=== PATIENT | male | born 2000 | race Caucasian/White ===

== ENCOUNTER 2022-04-17 14:16 | Emergency (ER) | payer SELFPAY ==
[2022-04-17 14:16] VITALS: BP 162/98; PULSE 115; RESP 15; TEMP 36.8; O2SAT 98
--- NOTE | 2022-04-17 14:25 | ED.FALL ---
HPI - Fall General Chief Complaint: Fall Stated Complaint: fall Time Seen by Provider: 04/17/22 14:24 History of Present Illness HPI Narrative: Pt tripped on sidewalk and fell. Pt scraped hands and right elbow. Pt unsure of last tetanus shot. Pt denies LOC or other injury. Related Data Home Medications Medication Instructions Recorded Confirmed escitalopram oxalate 10 mg tablet 10 mg PO DAILY 04/17/22 04/17/22 Allergies Allergy/AdvReac Type Severity Reaction Status Date / Time No Known Allergies Allergy Verified 04/17/22 14:23 Review of Systems Review of Systems: All systems reviewed & are unremarkable except as noted in HPI and below Exam Const: General: healthy appearing Nutritional Appearance: well nourished Orientation/consciousness: patient oriented x3 Limitations: no limitations HENMT: Head: normal to inspection Neck: Neck: normal visual inspection Chest: Chest palpation & inspection: normal inspection of the chest Resp: Effort & Inspection: normal respiratory effort Skin: Wounds: wounds noted Neuro: General: patient oriented x3, moves all extremities and no focal motor deficits Speech: normal speech Extrem: Other: abrasions to palm of left hand and dorsum of right hand and right elbow. no swelling and full ROM Psych: Mental Status: mental status grossly normal Affect: normal affect Attitude: cooperative Course Vital Signs Vital signs: Vital Signs Temperature 98.3 F 04/17/22 14:16 Pulse Rate 115 H 04/17/22 14:16 Respiratory Rate 15 04/17/22 14:16 Blood Pressure 162/98 H 04/17/22 14:16 Pulse Oximetry 98 04/17/22 14:16 Oxygen Delivery Room Air 04/17/22 14:16 Temperature 98.3 F 04/17/22 14:16 Pulse Rate 115 H 04/17/22 14:16 Respiratory Rate 15 04/17/22 14:16 Blood Pressure 162/98 H 04/17/22 14:16 Pulse Oximetry 98 04/17/22 14:16 Oxygen Delivery Room Air 04/17/22 14:16 MDM - Fall MDM Narrative Medical decision making narrative: abrasions noted, minimal swelling so not likely fx. Pt concerned about cost. agreed to wait on x rays, will see pcp if not improved in 7 days. Will clean wounds and give tetanus shot. Discharge Plan Discharge Clinical Impression: Abrasion hand Patient Disposition: Home, Self-Care Condition: Stable Instructions: Antibiotic Form, Abrasion (ED) Prescriptions: No Action escitalopram oxalate 10 mg tablet 10 mg PO DAILY Follow-up/Referrals: Noam Avendano MD [Primary Care Provider] -
[2022-04-17] MEDS: TETANUS,DIPHTHERIA,AC PERTUSSIS ADULT 0.5 ML (ADACEL) IM (14:37)
== END 2022-04-17 14:45 | disposition home or self-care (01) ==
LOC: CHSED 14:44
PROVIDERS: Emergency Provider Emergency Medicine; PCP Family Medicine
DX: S60.512A Abrasion of left hand, initial encounter (principal); S60.511A Abrasion of right hand, initial encounter; S50.311A Abrasion of right elbow, initial encounter; Z23 Encounter for immunization; W01.0XXA Fall on same level from slipping, tripping and stumbling without subsequent striking against object, initial encounter; Y92.480 Sidewalk as the place of occurrence of the external cause
CPT/HCPCS: 90471; 90715; 99282

== ENCOUNTER 2022-05-20 20:45 | Emergency (ER) | payer OTHER, SELFPAY ==
--- NOTE | ~2022-05-20 | XR_ITS ---
EXAMINATION: XR finger 4th RT min 2V INDICATION: Right fourth finger pain TECHNIQUE: Four views of the right fourth finger are obtained. COMPARISON: None available FINDINGS: There is an acute, traumatic, comminuted, presumably open fracture of the fourth middle pha lanx. Fracture planes extend to the proximal and distal interphalangeal joints. No additional fractur e is identified. There is soft tissue swelling of the fourth finger. IMPRESSION: 1. Comminuted, presumably open fracture of the fourth middle phalanx. Reviewed, dictated and finalized at location L.
--- NOTE | 2022-05-20 20:49 | ED.GENADULT ---
HPI - General Adult General Chief complaint: Wound/Laceration Stated complaint: right hand injury Time Seen by Provider: 05/20/22 20:47 History of Present Illness HPI narrative: Ck is a 22M that presented to the ED with pain and swelling in his right 4th digit after slamming in a lid at work earlier today. No other injuries reported. Tetanus is up to date. Related Data Home Medications Medication Instructions Recorded Confirmed escitalopram oxalate 10 mg tablet 10 mg PO DAILY 04/17/22 05/20/22 Allergies Allergy/AdvReac Type Severity Reaction Status Date / Time No Known Allergies Allergy Verified 04/17/22 14:23 Review of Systems Review of Systems: All systems reviewed & are unremarkable except as noted in HPI and below Exam Const: General: healthy appearing and no acute distress Nutritional Appearance: well nourished Orientation/consciousness: patient oriented x3 HENMT: Head: normal to inspection Ears: external ears normal Face/Nose/Sinus: Normal external nose present Eyes: Conjunctivae: conjunctivae normal Pupils: Equal, round and reactive pupils present Neck: Neck: normal visual inspection Chest: Chest palpation & inspection: normal inspection of the chest Resp: Effort & Inspection: normal respiratory effort Cardio: Rate: regular rate Skin: General skin exam: normal color Rashes: no rashes Neuro: General: patient oriented x3 and moves all extremities Cranial nerves: Yes Nystagmus not present Extrem: General: normal to inspection Other: Right 4th digit had a very superficial laceration over a contusion on the anterior side Psych: Mental Status: mental status grossly normal Course Course Emergency Course: Per my interpretation there was an interarticular fracture at the base of the 5th intermediate phalange He was given NOrco for the pain and placed in a finger splint He was advised to f/u with his doctor for further care. Later radiograph interpretation by radiologist did have concern for an open fracture. However, on exam the wound was very superficial. Vital Signs Vital signs: Vital Signs Temperature 99.3 F 05/20/22 20:50 Pulse Rate 97 05/20/22 20:50 Respiratory Rate 18 05/20/22 20:50 Blood Pressure 145/91 H 05/20/22 20:50 Pulse Oximetry 100 05/20/22 20:50 Oxygen Delivery Room Air 05/20/22 20:50 Temperature 99.3 F 05/20/22 20:50 Pulse Rate 84 05/20/22 21:38 Respiratory Rate 18 05/20/22 21:38 Blood Pressure 131/79 05/20/22 21:38 Pulse Oximetry 98 05/20/22 21:38 Oxygen Delivery Room Air 05/20/22 21:38 Procedures Orthopedic Splinting/Casting Injury #1: Splinting/Casting Date: 05/20/22 Splinting/Casting Time: 21:27 Side: right Upper Extremity Injury Location: finger (right 4th finger) Splint: customized in ED Pre-Formed: metal foam finger splint Pre-Procedure Neuro Vascular Exam: normal Post-Procedure Neuro Vascular Exam: normal Medical Decision Making Vital Signs Vital Signs: Vital Signs Temperature 99.3 F 05/20/22 20:50 Pulse Rate 97 05/20/22 20:50 Respiratory Rate 18 05/20/22 20:50 Blood Pressure 145/91 H 05/20/22 20:50 Pulse Oximetry 100 05/20/22 20:50 Oxygen Delivery Room Air 05/20/22 20:50 Temperature 99.3 F 05/20/22 20:50 Pulse Rate 84 05/20/22 21:38 Respiratory Rate 18 05/20/22 21:38 Blood Pressure 131/79 05/20/22 21:38 Pulse Oximetry 98 05/20/22 21:38 Oxygen Delivery Room Air 05/20/22 21:38 Discharge Plan Discharge Clinical Impression: Fx phalanges, hand-closed Patient Disposition: Home, Self-Care Condition: Stable Instructions: Finger Fracture (ED) Prescriptions: No Action escitalopram oxalate 10 mg tablet 10 mg PO DAILY hydrocodone-acetaminophen 7.5-325 mg tablet 1 tablet PO Q8H PRN (Reason: pain) Qty: 10 0RF Follow-up/Referrals: Noam Avendano MD [Primary Care Provid
[2022-05-20 20:50] VITALS: BP 145/91; PULSE 97; RESP 18; TEMP 37.4; O2SAT 100
[2022-05-20] MEDS: HYDROcodone/acetaminophen (*CRX) 5-325 MG TABLET 1 TAB PO (21:10)
[2022-05-20 21:38] VITALS: BP 131/79; PULSE 84; RESP 18; O2SAT 98
== END 2022-05-20 21:40 | disposition home or self-care (01) ==
PROVIDERS: Emergency Provider Family Medicine; PCP Family Medicine
DX: S61.214A Laceration without foreign body of right ring finger without damage to nail, initial encounter (principal); W45.8XXA Other foreign body or object entering through skin, initial encounter
CPT/HCPCS: 29130; 73140; 99284; A9270

== ENCOUNTER 2022-06-21 11:29 | Outpatient (CLI) | payer OTHER, BC, SELFPAY ==
--- NOTE | ~2022-06-21 | XR_ITS ---
EXAMINATION: XR finger 4th RT min 2V DATE: 06/21/2022 11:55 INDICATION: Swelling of the left fourth digit post blunt trauma one month prior TECHNIQUE: Dorsal palmar, lateral and oblique views of the left fourth digit were obtained COMPARISON: 05/20/2022 FINDINGS: There is decreasing lucency along the longitudinal oriented fracture which extends from the proximal to the distal articular surface of the left fourth middle phalanx. The fracture remains nondisplaced with no significant fracture gap or incongruity at the articular surfaces. No other fractures identif ied. Joint spaces are normal. No erosions/osteolysis to suggest osteomyelitis. Decreased soft tissue swelling centered at the mid phalanx of the fourth digit. IMPRESSION: 1. Likely healing longitudinally oriented fracture of the left fourth middle phalanx with no fracture gap or incongruity were well seated proximal distal articular surfaces. Reviewed, dictated and finalized at location B. IMPRESSION: 1. Likely healing longitudinally oriented fracture of the left fourth middle ph alanx with no fracture gap or incongruity were well seated proximal distal re cular surfaces.
== END 2022-06-21 11:30 | disposition home or self-care (01) ==
LOC: CHSIMG 11:32
PROVIDERS: PCP Family Medicine; Visit Provider Family Medicine
DX: M79.644 Pain in right finger(s) (principal)
CPT/HCPCS: 73140

== ENCOUNTER 2022-07-02 23:15 | Emergency (ER) | payer BC, SELFPAY ==
[2022-07-02 23:17] VITALS: BP 159/100; PULSE 79; RESP 14; TEMP 37; O2SAT 100
[2022-07-03] VITALS (41 sets, daily range): BP systolic 121–148; BP diastolic 63–104; PULSE 51–88; RESP 8–20; TEMP 36.6; O2SAT 96–100
[2022-07-03 00:23] LABS: Basophils Absolute Auto 0.1 K/mm3 (0.0-0.1); Eosinophils Absolute Auto 0.3 K/mm3 (0-0.3); Eosinophils Percent Auto 4.1 % (0-4.4); Hematocrit 46.5 % (42.0-52.0); Hemoglobin 16.1 g/dL (14.0-18.0); Immature Granulocyte Absolute 0.02 K/mm3 (0.00-0.031); Immature Granulocyte Percent A 0.2 % (0-0.5); Lymphocytes Absolute Auto 3.06 K/mm3 (0.9-3.2); Mean Corpuscular HGB Conc 34.6 g/dl (32-36); Mean Corpuscular Hemoglobin 31.3 pg (26-34); Mean Corpuscular Volume 90.5 fl (80-100); Mean Platelet Volume 10.2 fl (7.4-10.4); Monocytes Absolute Auto 0.9 K/mm3 (0.1-0.6); Monocytes Percent Auto 10.6 % (2.6-8.5); Neutrophils Absolute Auto 3.7 K/mm3 (1.3-6.7); Neutrophils Percent Auto 46.1 % (45.5-73.1); Platelet Count Result 296 k/mm3 (150-375); Red Blood Count 5.14 M/mm3 (4.6-6.20); Red Cell Distribution Width 12.4 % (11.5-14.5); White Blood Count 8.1 K/mm3 (4.5-10.0)
[2022-07-03 00:30] LABS: Acetaminophen < 10 ug/mL (10-30); Ethanol < 10 mg/dL (<10); Salicylate < 1.0 mg/dL (2-20)
[2022-07-03 00:31] LABS: Alanine Aminotransferase 14 U/L (6-50); Albumin Level 4.7 g/dL (3.5-5.1); Alkaline Phosphatase 65 U/L (38-126); Anion Gap 8 mmol/L (8-16); Aspartate Amino Transferase 35 U/L (17-59); Bilirubin,Total 0.7 mg/dL (0.2-1.3); Blood Urea Nitrogen 12 mg/dL (9-20); Calcium 9.1 mg/dL (8.4-10.2); Carbon Dioxide 30 mmol/L (22-30); Chloride 100 mmol/L (98-107); Estimated Glomerular Filt Rate > 60; Glucose 70 mg/dL (65-110); Potassium 3.9 mmol/L (3.4-5.0); Sodium 138 mmol/L (137-145)
[2022-07-03 00:55] LABS: Appearance Urine Clear (Clear); Bilirubin Urine Negative (Negative); Blood Urine Negative (Negative); Color Urine Yellow (Yellow); Glucose Urine UA Negative (Negative); Ketones Urine Negative (Negative); Leukocyte Esterase Ur Negative LEU/UL (Negative); Nitrate Urine Negative (Negative); Protein Urine Negative (Negative); Specific Grav Ur 1.016 (1.001-1.035); pH Urine 6.5 (5.0-9.0)
[2022-07-03 00:57] LABS: SARS-CoV-2 RNA PCR Negative (Negative)
[2022-07-03 01:10] LABS: Add Urine Microscopic? NO
--- NOTE | 2022-07-03 01:24 | ED.PSYCH ---
HPI - Psych General Chief Complaint: Psychiatric Symptoms <Marleen Malagon PA-C - Last Filed: 07/03/22 03:39> Stated Complaint: SI <ZHEN Bernal Last Filed: 07/03/22 03:39> Time Seen by Provider: 07/02/22 23:39 <Marleen Malagon PA-C - Last Filed: 07/03/22 03:39> Source: patient <ZHEN Bernal Last Filed: 07/03/22 03:39> Mode of arrival: ambulatory <ZHEN Bernal Last Filed: 07/03/22 03:39> Limitations: no limitations <Marleen Malagon PA-C - Last Filed: 07/03/22 03:39> History of Present Illness HPI Narrative: Patient is a 22-year-old male who presents the ED for psychiatric evaluation. Patient reports he saw his therapist today and was recommended to come to the ED for further psychiatric evaluation and likely psychiatric placement. He states life has been hard lately and he has had increased depression and anxiety over the last 1 year. He has been turning to alcohol for this and has been drinking daily, up to 1/5 of whiskey per day. He last drank today around 2 PM. He reports marijuana use, intermittent use of mushrooms, and use of Krypton, obtained legally from marijuana dispensary. He last used Kratom 1 hour prior to arrival. Patient states he was recently kicked out of his house and has been essentially homeless, though staying with his dad temporarily. He has had thoughts of wanting to harm himself for the last 1 month, and has had a plan for a toaster bath. He also reports he has been hearing voices a few months ago which began again last night. He states he hears 2 voices, one of them a male who threatens him, 1 a female who relaxes him. Patient has been psychiatrically hospitalized once prior. He does currently take Lexapro and bupropion for depression and anxiety. Has not missed any doses. Denies any HI. <ZHEN Bernal Last Filed: 07/03/22 03:39> Related Data Home Medications: Home Medications Medication Instructions Recorded Confirmed escitalopram oxalate 10 mg tablet 10 mg PO DAILY 04/17/22 05/20/22 <Marleen Malagon PA-C - Last Filed: 07/03/22 03:39> Allergies/Adverse Reactions: Allergies Allergy/AdvReac Type Severity Reaction Status Date / Time No Known Allergies Allergy Verified 04/17/22 14:23 <Marleen Malagon PA-C - Last Filed: 07/03/22 03:39> Review of Systems Review of Systems: CONSTITUTIONAL: Denies fever, chills, or sweats. EYES: Denies visual changes. CARDIOVASCULAR: Denies chest pain, palpitations, or edema. RESPIRATORY: Denies cough or dyspnea. GASTROINTESTINAL: Denies abdominal pain, nausea, vomiting. MUSCULOSKELETAL: Denies back pain, joint pain, or myalgia. NEUROLOGIC: Denies headache, numbness, or weakness. PSYCHIATRIC: See HPI. <Marleen Malagon PA-C - Last Filed: 07/03/22 03:39> All systems reviewed & are unremarkable except as noted in HPI and below <Marleen Malagon PA-C - Last Filed: 07/03/22 03:39> PMFSH Past Medical History Medical History: Medical History (Updated 07/04/22 @ 00:00 by Allen Gr) Anxiety Depression <Marleen Malagon PA-C - Last Filed: 07/03/22 03:39> Surgical History Surgical History: Surgical History (Updated 07/03/22 @ 01:31 by Marleen Malagon PA-C) No pertinent past surgical history <Marleen Malagon PA-C - Last Filed: 07/03/22 03:39> Social History Social History: Social History (Updated 07/03/22 @ 01:31 by Marleen Malagon PA-C) Smoking status: Never smoker Alcohol intake: current Substance use: current Substance use type: marijuana, hallucinogens and other <Marleen Malagon PA-C - Last Filed: 07/03/22 03:39> Exam Narrative: GENERAL: Well appearing, well-nourished, non-toxic, in no acute distress. HEAD: Normocephalic, atraumatic. EYES: PERRLA/EOMI, conjunctiva clear. NECK: Supple. No adenopathy, no masses. RESPIRATO
[2022-07-03 01:33] LABS: Amphetamine Screen Urine Negative (Negative); Barbiturate Screen Urine Negative (Negative); Benzodiazepines Screen Urine Negative (Negative); Cannabinoid Screen Urine Positive (Negative); Cocaine Screen Urine Negative (Negative); Methadone Screen Urine Negative (Negative); Opiate Screen Urine Negative (Negative); Phencyclidine Screen Urine Negative (Negative)
[2022-07-03] MEDS: ONDANSETRON INJ 4 MG/2 ML VIAL (02:44)
--- NOTE | 2022-07-03 02:45 | ECG_ITS ---
Measurements Intervals [place] Rate: 56 P: 56 AK: 197 QRS: 72 QRSD: 102 T: 33 QT: 422 QTc: 409 Interpretive Statements SINUS BRADYCARDIA INCOMPLETE RIGHT BUNDLE BRANCH BLOCK BORDERLINE ECG NO PREVIOUS ECG AVAILABLE FOR COMPARISON Electronically Signed On 07-03-2022 6:45:40 CDT by Fab Guidry D.O.
[2022-07-03] MEDS: SODIUM CHLORIDE 0.9% IV 1,000 ML 999 ML IV CONT (02:51)
[2022-07-03] MEDS: PANTOPRAZOLE SODIUM IV 40 MG VIAL IV PUSH (02:52)
--- NOTE | 2022-07-03 03:26 | PC.NURSE ---
Patient began to c/o nausea. He reported that he was hungry and that sometimes when he gets hungry he becomes nauseous. Patient provided sandwich and sprite and was told that if the nausea worsens rather than improves to stop eating and communicate to this RN. The patient began to experience increasing nausea and LUQ abdominal pain. He then vomited several times. He also c/o feeling hot and flushed and was acutely diaphoretic. The patient then admitted that he has been taking Kratom over the past two days and was afraid that he poisoned himself. He states that he took 5 40 mg pills Friday and a total of 9 40 mg pill throughout the day on Friday with the last being approx. 1 hour manager spa. This was communicated to the PA and Poison Control was called. Spoke with Carmen at [place] [facility]. She indicates that overdose of Kratom can cause n/v/d as well as abdominal pain. She communicated that the half-life is approx. 11-39 hours but that withdrawal symptoms can begain anywhere from 12-24 hours after last dose. She reported that the patient may experience tachycardia, diaphoresis and very rarely seizure activity. She recommended supportive symptom management. She did recommend repeating a CMP prior to discharge. She did not recommend any specific monitoring time but stated that once symptoms were management or resolve that the prior treatment plan (CRISIS assessment) could proceed. Awaiting faxed information on Kratom. EDP made aware of recommendations.
--- NOTE | 2022-07-03 07:12 | PC.NURSE ---
Patient report given to BE Cardona. All questions answered and care of patient transferred.
--- NOTE | 2022-07-03 07:28 | PC.NURSE ---
Assumed care of pt, pt is resting - alert to verbal stimuli. Vital signs monitored. Pt denies any nausea or other complaints at this time. Discussed POC. Sitter remains at bedside.
--- NOTE | 2022-07-03 07:40 | PC.NURSE ---
Called [facility] and pt was declined due to has insurance. Called Renata from Crisis, will send someone to eval pt within 90 minutes.
--- NOTE | 2022-07-03 07:58 | PC.NURSE ---
Called Dulce (pts sister and emergency contact) w/ pts permission and discussed pt status and POC. Her cell is [phone]
--- NOTE | 2022-07-03 09:00 | PC.NURSE ---
Alicia from Crisis here for pt eval, at pts bedside at this time.
--- NOTE | 2022-07-03 10:03 | PC.NURSE ---
called dietary and ordered breakfast/lunch tray for pt at this time
--- NOTE | 2022-07-03 11:28 | PC.NURSE ---
Spoke with Magy rincon [facility] and informed her that per primary RN, Dulce, no repeat CMP was needed per provider and the case was closed by poison control.
--- NOTE | 2022-07-03 12:05 | PC.NURSE ---
Poison control contacted this RN to find out if additional optional labs drawn, this RN notified there were no repeat labs. Pt asymptomatic at this time. Poison control states the case is closed.
--- NOTE | 2022-07-03 12:22 | PC.NURSE ---
This RN faxed chart/records to [facility] at [phone] as requested by Yumiko at [facility]. (PH# [phone])
--- NOTE | 2022-07-03 12:54 | PC.NURSE ---
[facility] called to notify have accepted pt, will call back for further admit questions. Dr Carrasco is admitting doc. EDP Dr Chambers and charge made aware.
--- NOTE | 2022-07-03 14:16 | PC.NURSE ---
This RN called [facility] accepting line to continue with transfer information, was told all lines are busy and spoke to Amanda, will give msg I called and requested info to complete transfer. Per Yajaira Patel who initially called will return the phone call when able. [facility] [phone]
--- NOTE | 2022-07-03 14:19 | PC.NURSE ---
called dietary and ordered lunch tray for pt
--- NOTE | 2022-07-03 15:20 | PC.NURSE ---
Per Christopher pt is going to UN[address], call report number is [phone], this RN attempted to call report at this time and told all nurses are doing 1500 reports and to call back in aprox 30 mins.
--- NOTE | 2022-07-03 15:53 | PC.NURSE ---
Pt report called, nurse to nurse given to Jaimie at [facility], adult unit [address], phone number [phone], [phone].
--- NOTE | 2022-07-03 22:12 | PC.NURSE ---
[facility] arrives to take patient. Report/paperwork/belongings given to EMT.
== END 2022-07-03 22:15 ==
PROVIDERS: Emergency Provider Physician Assistant; PCP Family Medicine
DX: R45.851 Suicidal ideations (principal); R44.0 Auditory hallucinations; F19.10 Other psychoactive substance abuse, uncomplicated; F32.A Depression, unspecified; Z20.822 Contact with and (suspected) exposure to COVID-19; F41.9 Anxiety disorder, unspecified
CPT/HCPCS: 36415; 80053; 80307; 81003; 84443; 85025; 87635; 93005; 96361; 96374; 96375; 99285; C9113; J2405; J7030; U0005

== ENCOUNTER 2023-06-30 18:16 | Emergency (ER) | payer OTHER, SELFPAY ==
[2023-06-30] VITALS (7 sets, daily range): BP systolic 107–136; BP diastolic 54–84; PULSE 80–89; RESP 13–20; TEMP 36.9–37; O2SAT 96–100
--- NOTE | 2023-06-30 18:24 | ECG_ITS ---
SEE SCANNED COPY FOR CONFIRMED REPORT MTDD
--- NOTE | 2023-06-30 18:40 | PC.NURSE ---
SPOKE WITH AFSHAN AT [facility] [facility] WHO RECOMMENDED SUPPORTIVE AND SYMPTOMATIC CARE. PEAK 1-2* BASED ON WEIGHT PT COULD HAVE UP TO 136 TABLETS. AFTER THAT HE COULD HAVE NAUSEA,EMESIS,ABDOMINAL PAIN, ATAXIA,BLURRED VISION AND POTENTIALLY METABOLIC ACIDOSIS. RECOMMENDED TO TEST FULL TOX PANEL TO CHECK FOR ADDITIONAL MEDS. ALSO RECOMMENDED TO GIVE A PPI FOR STOMACH PROTECTION.
[2023-06-30 18:41] LABS: Basophils Absolute Auto 0.1 K/mm3 (0.0-0.1); Basophils Percent Auto 1.2 % (0.2-1.2); Eosinophils Absolute Auto 0.2 K/mm3 (0-0.3); Hematocrit 49.9 % (42.0-52.0); Hemoglobin 16.8 g/dL (14.0-18.0); Immature Granulocyte Absolute 0.01 K/mm3 (0.00-0.031); Immature Granulocyte Percent A 0.2 % (0-0.5); Lymphocytes Absolute Auto 2.43 K/mm3 (0.9-3.2); Mean Corpuscular HGB Conc 33.7 g/dl (32-36); Mean Corpuscular Hemoglobin 31.8 pg (26-34); Mean Corpuscular Volume 94.5 fl (80-100); Mean Platelet Volume 11.4 fl (7.4-10.4); Monocytes Absolute Auto 0.4 K/mm3 (0.1-0.6); Monocytes Percent Auto 6.2 % (2.6-8.5); Neutrophils Absolute Auto 2.8 K/mm3 (1.3-6.7); Neutrophils Percent Auto 47.4 % (45.5-73.1); Platelet Count Result 227 k/mm3 (150-375); Red Blood Count 5.28 M/mm3 (4.6-6.20); Red Cell Distribution Width 12.4 % (11.5-14.5); White Blood Count 5.9 K/mm3 (4.5-10.0)
[2023-06-30 18:56] LABS: Alanine Aminotransferase 8 U/L (6-50); Albumin Level 4.9 g/dL (3.5-5.1); Alkaline Phosphatase 80 U/L (38-126); Anion Gap 15 mmol/L (4-12); Aspartate Amino Transferase 26 U/L (17-59); Bilirubin,Total 0.4 mg/dL (0.2-1.3); Blood Urea Nitrogen 15 mg/dL (9-20); Calcium 9.4 mg/dL (8.4-10.2); Carbon Dioxide 20 mmol/L (22-30); Chloride 111 mmol/L (98-107); Estimated CRCL calculation 87 ml/min; Estimated Glomerular Filt Rate > 60; Glucose 84 mg/dL (65-110); Sodium 146 mmol/L (137-145)
[2023-06-30] MEDS: SODIUM CHLORIDE 0.9% IV 2,000 ML 999 ML IV CONT (19:18)
[2023-06-30 19:24] LABS: Appearance Urine Clear (Clear); Bilirubin Urine Negative (Negative); Blood Urine Negative (Negative); Color Urine Yellow (Yellow); Glucose Urine UA Negative (Negative); Ketones Urine Negative (Negative); Leukocyte Esterase Ur Negative LEU/UL (Negative); Nitrate Urine Negative (Negative); Protein Urine Negative (Negative); Specific Grav Ur 1.006 (1.001-1.035); Urobilinogen Urine 0.2 mg/dL (<2.0)
[2023-06-30 19:26] LABS: Thyroid Stimulating Hormone 0.867 uIU/mL (0.465-4.680)
[2023-06-30 19:36] LABS: Acetaminophen < 10 ug/mL (10-30); Ethanol 192 mg/dL (<10); Salicylate < 1.0 mg/dL (2-20)
[2023-06-30 19:40] LABS: Amphetamine Screen Urine Negative (Negative); Barbiturate Screen Urine Negative (Negative); Benzodiazepines Screen Urine Negative (Negative); Cannabinoid Screen Urine Positive (Negative); Cocaine Screen Urine Negative (Negative); Methadone Screen Urine Negative (Negative); Opiate Screen Urine Negative (Negative); Phencyclidine Screen Urine Negative (Negative)
[2023-06-30 19:42] LABS: Add Urine Microscopic? NO
--- NOTE | 2023-06-30 19:54 | ED.GENADULT ---
HPI - General Adult General Chief complaint: Overdose Stated complaint: SI/OD/ETOH+ Time Seen by Provider: 06/30/23 18:53 History of Present Illness HPI narrative: This is a 23-year-old male presenting for overdose with suicide intention. Patient says that he does not deserve to live. He does not deserve love. Says that he drank a 5th alcohol and then took a handful of ibuprofen attempt to harm self. He denies other drug use. Patient says that he has tried to commit suicide before by cutting. When I ask where he showed me a laceration to his pinky. He does not have access to a firearm. Patient has a psychiatrist and is on aripiprazole. Related Data Home Medications Medication Instructions Recorded Confirmed aripiprazole 5 mg tablet mg 06/30/23 escitalopram oxalate 10 mg tablet mg 06/30/23 Allergies Allergy/AdvReac Type Severity Reaction Status Date / Time No Known Allergies Allergy Verified 06/30/23 19:21 [facility] Past Medical History Medical History Anxiety Depression Surgical History Surgical History No pertinent past surgical history Social History Social History Smoking status: Never smoker Alcohol intake: current Substance use: current Substance use type: marijuana Exam Narrative: APPEARANCE: No apparent distress. Head: atraumatic. EYES: EOMI, NOSE: Atraumatic NECK: Trachea midline RESPIRATORY: No increased rate of breathing CTAB CARDIOVASCULAR: RRR, no peripheral edema ABDOMINAL: Non-distended soft nontender MUSCULOSKELETAl: No obvious deformities NEURO: Alert. Moving 4/4 extremities SKIN:: Warm, dry. Normal color PSYCHIATRIC: Normal affect Course Vital Signs Vital signs: Vital Signs Temperature 98.5 F 06/30/23 18:16 Pulse Rate 80 06/30/23 18:16 Respiratory Rate 16 06/30/23 18:16 Blood Pressure 128/82 06/30/23 18:16 Pulse Oximetry 100 06/30/23 18:16 Oxygen Delivery Room Air 06/30/23 18:16 Temperature 98.6 F 06/30/23 20:44 Pulse Rate 77 07/01/23 04:49 Respiratory Rate 16 07/01/23 04:49 Blood Pressure 132/70 07/01/23 04:49 Pulse Oximetry 97 07/01/23 04:49 Oxygen Delivery Room Air 06/30/23 22:05 Medical Decision Making MDM Narrative Medical decision making narrative: -Course: 23-year-old presenting for overdose and alcohol intoxication. Toxicology workup ordered. Patient given fluid resuscitation for possible Motrin overdose. Patient will be monitored for 6 hours until medically cleared and evaluated by crisis Center. Patient is medically cleared for psych crisis eval. patient was evaluated by crisis Center. Patient will be voluntarily admitted for suicidal ideation. -DDX includes but is not limited to: Intoxication, adjustment disorder, depression, suicidality -Co-morbidities complicating care: Depression -Social determinants of health: Unemployed, lives with his mom -Independent interpretation of studies: Labs reviewed. Slight anion gap acidosis. Patient given fluid resuscitation. repeat labs normal. -Discussion of Management/Consultants: Crisis -Interventions:2 L normal saline -Shared decision making / Disposition: Patient accepted at [facility] under Dr. David Vital Signs Vital Signs: Vital Signs Temperature 98.5 F 06/30/23 18:16 Pulse Rate 80 06/30/23 18:16 Respiratory Rate 16 06/30/23 18:16 Blood Pressure 128/82 06/30/23 18:16 Pulse Oximetry 100 06/30/23 18:16 Oxygen Delivery Room Air 06/30/23 18:16 Temperature 98.6 F 06/30/23 20:44 Pulse Rate 77 07/01/23 04:49 Respiratory Rate 16 07/01/23 04:49 Blood Pressure 132/70 07/01/23 04:49 Pulse Oximetry 97 07/01/23 04:49 Oxygen Delivery Room Air 06/30/23 22:05 Lab Data 06/30/23 18:30 06/30/23 23:59 Labs: Lab R
[2023-06-30 20:58] LABS: Influenza A QL RT-PCR Negative (Negative); Influenza B QL RT-PCR Negative (Negative); RSV RNA, RT-PCR Negative (Negative); SARS-CoV-2 RNA PCR Negative (Negative)
[2023-07-01 00:14] LABS: Ethanol 84 mg/dL (<10)
[2023-07-01 00:15] LABS: Anion Gap 8 mmol/L (4-12); Blood Urea Nitrogen 12 mg/dL (9-20); Calcium 8.2 mg/dL (8.4-10.2); Carbon Dioxide 22 mmol/L (22-30); Chloride 113 mmol/L (98-107); Estimated CRCL calculation 106 ml/min; Estimated Glomerular Filt Rate > 60; Glucose 83 mg/dL (65-110); Potassium 3.9 mmol/L (3.4-5.0); Sodium 143 mmol/L (137-145)
[2023-07-01] MEDS: ONDANSETRON INJ 4 MG/2 ML VIAL IV PUSH (00:38)
--- NOTE | 2023-07-01 00:58 | PC.NURSE ---
crisis notified that they are medically clear at this time .
[2023-07-01 01:22] VITALS: BP 131/90; PULSE 84; RESP 16; O2SAT 96
[2023-07-01 02:58] VITALS: BP 130/82; PULSE 80; RESP 16; O2SAT 97
--- NOTE | 2023-07-01 04:47 | PC.NURSE ---
EDP Dr. Yarbrough spoke with CRISIS workers and stated he thinks that the patient should be placed. CRISIS workers advised patient that their decision may be overridden by EDP. nuclear plant construction worker stated that patient would be willing to sign a voluntary waiver for placement.
[2023-07-01 04:49] VITALS: BP 132/70; PULSE 77; RESP 16; O2SAT 97
--- NOTE | 2023-07-01 06:18 | PC.NURSE ---
Called [facility] and spoke with Yasmin and case number is [id number]. Per [facility] poison control case is closed at this moment.
--- NOTE | 2023-07-01 06:27 | PC.NURSE ---
[facility] called and advised they need a [place] poison control number and a note stating that the case has been closed. [facility] also stated they needed a copy of the EKG for the patient. All obtained and sent via fax to [facility].
--- NOTE | 2023-07-01 07:40 | PC.NURSE ---
[facility] called and requesting to speak with patient. transferred to [facility] phone and pt speaking with [facility] at this time.
--- NOTE | 2023-07-01 07:46 | PC.NURSE ---
[facility] called back and reports pt has been accepted at facility. waiting on bed.
--- NOTE | 2023-07-01 08:18 | PC.NURSE ---
pt has been accepted at [facility]. Dr. Delgado is accepting physician. Room 416A. nurse to nurse reports has been given and spoke with BE Bray.
== END 2023-07-01 09:27 ==
PROVIDERS: Emergency Medicine; Emergency Provider Emergency Medicine; PCP Family Medicine
DX: F32.A Depression, unspecified (principal); Z11.52 Encounter for screening for COVID-19; F41.9 Anxiety disorder, unspecified
CPT/HCPCS: 36415; 80048; 80053; 80307; 81003; 84443; 85025; 87637; 93005; 96361; 96374; 99285; J2405; J7030